=== PATIENT | female | born 1995 | race Caucasian/White ===

== ENCOUNTER 2021-06-09 14:20 | Emergency (ER) | payer OTHER ==
[~2021-06-09] VITALS: Ht 152.4 cm; Wt 46.3 kg
== END 2021-06-09 16:05 | disposition home or self-care (01) ==
LOC: ER 14:20
DX: J31.0 Chronic rhinitis (principal); B34.9 Viral infection, unspecified; F17.210 Nicotine dependence, cigarettes, uncomplicated
CPT/HCPCS: 99283